=== PATIENT | female | born 1955 | race African-American/Black ===

== ENCOUNTER 2021-09-17 15:41 | Emergency (ER) | payer MEDICARE, OTHER ==
[~2021-09-17] VITALS: Ht 172.7 cm; Wt 72.6 kg
[2021-09-17 15:48] VITALS: BP 118/81
[2021-09-17] MEDS ORDERED: IPRATROPIUM NEB FS 0.5 MG/2.5 ML AMPUL.NEB NEB ONE (16:00)
[2021-09-17] MEDS ORDERED: predniSONE 20 MG TABLET PO ONE (16:00)
[2021-09-17] MEDS ORDERED: ALBUTEROL FS 2.5 MG/3 ML VIAL.NEB NEB ONE (16:00)
[2021-09-17] MEDS ORDERED: predniSONE 20 MG TABLET ONE (16:29)
[2021-09-17] MEDS ORDERED: ALBUTEROL FS 2.5 MG/3 ML VIAL.NEB ONE (16:38)
[2021-09-17] MEDS ORDERED: IPRATROPIUM NEB FS 0.5 MG/2.5 ML AMPUL.NEB ONE (16:38)
--- NOTE | 2021-09-17 16:45 | NUR ---
RT AT BEDSIDE FOR BREATHING TREATMENT
[2021-09-17] MEDS ORDERED: ALBU8.5H8 INH (17:12)
[2021-09-17] MEDS ORDERED: PRED50TA PO (17:12)
--- NOTE | 2021-09-17 17:33 | NUR ---
[facility] ETA 2300 [address].
--- NOTE | 2021-09-17 17:34 | NUR ---
GURDEEP BUNDY OF [facility] WILL CALL BACK FOR FIRE CHIEF'S AIDE INFO
--- NOTE | 2021-09-17 18:23 | NUR ---
[facility] WILL REVENUE DIRECTOR PATIENT. ETA 20MIN
--- NOTE | 2021-09-17 19:15 | NUR ---
Patient discharged to home in stable condition. Written and verbal after care instructions given. Patient verbalizes understanding of instruction. Picked up by Guadalupe Zapata CNA.
== END 2021-09-17 19:17 | disposition home or self-care (01) ==
LOC: ER 16:12
DX: R06.02 Shortness of breath (principal); Z88.0 Allergy status to penicillin; Z79.52 Long term (current) use of systemic steroids; Z79.51 Long term (current) use of inhaled steroids
CPT/HCPCS: 71045; 93005; 94640; 94760; 94799; 99283; J7512